=== PATIENT | male | born 1960 | race Caucasian/White ===

== ENCOUNTER 2021-03-22 22:41 | Inpatient (IN) | payer OTHER ==
[~2021-03-22] VITALS: Ht 170.2 cm; Wt 66.3 kg
[2021-03-22 23:16] LABS: BASOPHILS ABSOLUTE AUTO 0.03 K/mm3 (0.00-0.23); BASOPHILS PERCENT AUTO 1 % (0-2); EOSINOPHILS ABSOLUTE AUTO 0.29 K/mm3 (0.00-0.68); EOSINOPHILS PERCENT AUTO 5 % (0-6); Hematocrit 24.9 % (37.0-53.0); Hemoglobin 8.3 g/dL (13.5-17.5); IMMATURE GRAN ABSOLUTE AUTO 0.03 K/mm3 (0.00-0.10); IMMATURE GRAN PERCENT AUTO 1 % (0-1); LYMPHOCYTES ABSOLUTE AUTO 0.76 K/mm3 (0.84-5.20); LYMPHOCYTES PERCENT AUTO 13 % (21-46); MONOCYTES PERCENT AUTO 9 % (4-13); Mean Corpuscular HGB 32.5 pg (26.0-34.0); Mean Corpuscular HGB Conc 33.3 g/dL (31.5-36.5); Mean Corpuscular Volume 98 fL (80-100); Mean Platelet Volume 9.9 fL (9.1-12.4); NEUTROPHILS ABSOLUTE AUTO 4.15 K/mm3 (1.96-9.15); NEUTROPHILS PERCENT AUTO 72 % (41-73); Platelet Count 93 K/mm3 (150-400); RDW Coefficient Variation 17.8 % (11.7-14.2); RDW Standard Deviation 63.2 fL (35.1-46.3); Red Blood Cell Count 2.55 M/mm3 (4.30-5.90); White Blood Cell Count 5.76 K/mm3 (4.00-11.30)
[2021-03-22 23:37] LABS: Alanine Aminotransfer (ALT/SGP 20 U/L (12-78); Albumin, Blood 2.8 g/dL (3.4-5.0); Albumin/Globulin Ratio 0.8 (0.8-1.8); Alk Phos 76 U/L (50-136); Anion Gap 5 mmol/L (6-16); Aspartate Aminotrans (AST/SGOT 43 U/L (12-37); Bilirubin, Total 4.8 mg/dL (0.1-1.0); Blood Urea Nitrogen 15 mg/dL (8-24); Bun/Creatinine Ratio 13.2 (12.0-20.0); CO2, Blood 27 mmol/L (21-32); Calcium, Blood 8.4 mg/dL (8.5-10.1); Chloride, Blood 108 mmol/L (98-108); Creatinine, Blood 1.14 mg/dL (0.60-1.20); Globulin, Blood 3.4 g/dL (2.2-4.0); Glomerular Filtration Rate >60 (60-); Glucose, Blood 90 mg/dL (70-99); Potassium, Blood 4.5 mmol/L (3.5-5.5); Sodium, Blood 140 mmol/L (136-145); Total Protein, Blood 6.2 g/dL (6.4-8.2)
[2021-03-23 07:12] LABS: Anion Gap 5 mmol/L (6-16); Blood Urea Nitrogen 15 mg/dL (8-24); Bun/Creatinine Ratio 13.5 (12.0-20.0); CO2, Blood 26 mmol/L (21-32); Calcium, Blood 8.3 mg/dL (8.5-10.1); Chloride, Blood 109 mmol/L (98-108); Creatinine, Blood 1.11 mg/dL (0.60-1.20); Glomerular Filtration Rate >60 (60-); Glucose, Blood 86 mg/dL (70-99); Potassium, Blood 4.3 mmol/L (3.5-5.5); Sodium, Blood 140 mmol/L (136-145)
[2021-03-23 07:21] LABS: BASOPHILS ABSOLUTE AUTO 0.04 K/mm3 (0.00-0.23); BASOPHILS PERCENT AUTO 1 % (0-2); EOSINOPHILS PERCENT AUTO 6 % (0-6); Hematocrit 24.6 % (37.0-53.0); Hemoglobin 8.2 g/dL (13.5-17.5); IMMATURE GRAN ABSOLUTE AUTO 0.03 K/mm3 (0.00-0.10); IMMATURE GRAN PERCENT AUTO 1 % (0-1); LYMPHOCYTES ABSOLUTE AUTO 0.72 K/mm3 (0.84-5.20); LYMPHOCYTES PERCENT AUTO 15 % (21-46); MONOCYTES ABSOLUTE AUTO 0.43 K/mm3 (0.16-1.47); MONOCYTES PERCENT AUTO 9 % (4-13); Mean Corpuscular HGB 33.3 pg (26.0-34.0); Mean Corpuscular HGB Conc 33.3 g/dL (31.5-36.5); Mean Corpuscular Volume 100 fL (80-100); Mean Platelet Volume 10.3 fL (9.1-12.4); NEUTROPHILS ABSOLUTE AUTO 3.22 K/mm3 (1.96-9.15); NEUTROPHILS PERCENT AUTO 68 % (41-73); Platelet Count 90 K/mm3 (150-400); RDW Coefficient Variation 17.7 % (11.7-14.2); RDW Standard Deviation 66.1 fL (35.1-46.3); Red Blood Cell Count 2.46 M/mm3 (4.30-5.90); White Blood Cell Count 4.74 K/mm3 (4.00-11.30)
--- NOTE | 2021-03-23 07:25 | NUR ---
PT ARRIVES TO ICU VIA GURNEY AT 0320 THIS AM, APPEARS TO BE SLEEPING ON ARRIVAL TO ROOM, ROUSES EASILY TO VERBAL STIMULI, STATES THAT HE IS AWARE THAT HE IS IN [place] AND THAT HE HAS BEEN IN THE HOSPITAL MORE THAN HOME HOWEVER HE DOES NOT KNOW MUCH MORE AT THIS TIME. HIS CHIEF COMPLAINT IS ITCHING AND FEELING COLD AT THIS TIME, WARM BLANKETS PROVIDED. LUNGS WITH CRACKLES MID TO BASES BILAT, SATS MAINTAINING WITH OXYGEN VIA NASAL CANNULA AT 4 L/MIN HOME FLOW RATE PER REPORT IS 2 L/MIN, SPEAKING IN FULL SENTENCES, RATE TEENS. HRR, SINUS RHYTHM, PRESSURES SOFT BUT MAINTAINING MAP.
--- NOTE | 2021-03-23 07:30 | NUR ---
Received report from Lillian GLEZ. Patient laying on left side and awakened easily when entering room. He is slow to answer and is withdrawn affect. He is on RA and sats 96%. He is able top communicate needs and position self in bed for comfort. He has LW 20ga IV infusing Protonix at 10 ml/hr, 20ga IV LFA infusing Octreotide at 50mcg/hr and RW 18ga IV flushed and SL. He has 16 Fr méndez draining to gravity erasto colored urine. He has compression bootys in place.
--- NOTE | 2021-03-23 08:00 | NUR ---
Oral care, cath care, and full bath given and repositioned . All med per mar administered. He is intunbated and paralyzed. He has 8.0 ET and 26 cm at lips with vent settings of 24/500/20/95% and sats 93%. He has CL RIJ dressing intact and site WNL's infusing Ronald-synepherine and 30 mcg/min, Nimbex at 3 mcg/kg/min, NS at 100 mlm/hr and Fentanyl at 100 mcg/hr. He hac 20ga Power glide in [place] and is infusing 50 mcg/kg/min Propofol. He also has 20ga PowerGlide in EULOGIO dressing intact and site WNL's He has 16 Fr méndez draining to gravity erasto colored urine. BIS 45-55 and TO4 1/4.
--- NOTE | 2021-03-23 09:24 | NUR ---
Patient was up on bedpan without success. Tolerated Cl Liq diet for breakfast. Wants to get up and walk around. VSS. No signs of current GI bleeding. Awake and alert. MAEW.
[2021-03-23 10:12] LABS: Hematocrit 29.5 % (37.0-53.0); Hemoglobin 9.7 g/dL (13.5-17.5)
--- NOTE | 2021-03-23 12:41 | NUR ---
Verified consult with Dr Santos and he will be in after cases. Patient up to bedside cammode with SBA and did well, he had brown formed stool with small amout of maroon at end. Istrate by and no new orders, he stated if not scopeing maybe transferred from ICU. VSS, See EMR. He remains on RA and sats >95%. He sleeps when not disturbed with care and awakens easily. ABX given per OCT.
--- NOTE | 2021-03-23 16:25 | NUR ---
Patient continues to rest and awakens easily when care. He has kash stating he is cold but and 100.3 fever. VSS, See EMR. Patient anxious about procedure. Continues to tolerate CL Liq. No BM since this am. Protonix and Octreotide continues at same rate.. Remains on RA.
[2021-03-23 17:20] LABS: SARS-Cov-2 (COVID-19) PCR, MMC NEGATIVE (NEGATIVE)
--- NOTE | 2021-03-23 18:34 | NUR ---
Dr Santos here to see patient. Just prior gave patient bath with aide. Changed méndez out per Infection control and will send UA when he has some urine. VSS, See EMR. Patient continues to rest. Protonix at 10 ml/hr and Octreotide and 5o mcg/hr.
[2021-03-23 19:04] LABS: Source, Urine Catheter
[2021-03-23 19:09] LABS: Appearance, Urine Hazy (Clear); Bilirubin, Urine Neg (Neg); Blood, Urine 5+ (Neg); Color, Urine Amber (P-Yellow); Glucose Qualitative, Urine Neg (Neg); Ketones, Urine Neg (Neg); Leukocyte Esterase, Urine 3+ (Neg); Nitrite, Urine Neg (Neg); Protein, Urine 2+ (Neg); Urobilinogen, Urine NORM (Normal)
--- NOTE | 2021-03-23 19:30 | NUR ---
ASSUMED CARE OF PT, REPORT RECEIVED. PT IS NOTED RESTING QUIETLY ON LEFT SIDE IN BED AND APPEARS TO BE SLEEPING, ROUSES EASILY TO VERBAL STIMULI, STATES THAT HE WANTS TO GO HOME, ADMITS TO "A LITTLE BIT" OF NAUSEA WHEN ASKED, STATES THAT HIS PAIN CONTINUES TO BE GENERALIZED AND "BAD" HOWEVER HE STATES THAT HE CAN SLEEP AND FORGET THAT HE HURTS WHEN UNDISTURBED, PLAN AT THIS TIME IS TO ALLOW FOR UNITERUPTED REST SECONDARY TO PRESSURES SOFT AND RESP RATE IS LOW TEENS AT THIS TIME. HE IS SLOW TO RESPOND, SPEAKING IN FULL SENTENCES, STATES THAT HIS BREATHING FEELS "ALL RIGHT" AND SATS ARE MAINTAINING LOW 90S WITH SLEEP. HRR, SINUS CONTINUES ON MONITOR, PRESSURES REMAIN SOFT HOWEVER MAINTAINING MAP, CONTINUES WITHOUT EDEMA, PULSES REMAIN FULL, CAP REFILL 3 SECONDS. HYPERACTIVE BOWEL TONES CONTINUE, ABD MODERATELY DISTENDED, TENDER TO PALP. SCABS CONTINUE TO BE NOTED SCATTERED OVER WHOLE BODY, PT ADMITS TO CONTINUED ITCHING.
[2021-03-23] MEDS ORDERED: ONDA4ODT PO (19:40)
[2021-03-23] MEDS ORDERED: LACT10SY PO (19:40)
[2021-03-23] MEDS ORDERED: PROC5 PO (19:41)
[2021-03-23] MEDS ORDERED: ALBU90OI INH (19:42)
[2021-03-23] MEDS ORDERED: MIDO5 PO (19:42)
[2021-03-23] MEDS ORDERED: MAGNESIUM OXID500 MG PO (19:43)
[2021-03-23] MEDS ORDERED: B-1100 M1 PO (19:43)
[2021-03-23] MEDS ORDERED: DIPH50 PO (19:43)
[2021-03-23] MEDS ORDERED: Atarax10 MG PO (19:44)
[2021-03-23] MEDS ORDERED: GABA300 PO (19:44)
[2021-03-23] MEDS ORDERED: FURO20 PO (19:44)
[2021-03-23] MEDS ORDERED: OMEP20ER PO (19:46)
[2021-03-23] MEDS ORDERED: NOVOLOG FL100 UNIT/3 SC (19:46)
[2021-03-23] MEDS ORDERED: POTA10T PO (19:47)
[2021-03-23] MEDS ORDERED: SPIR50 PO (19:47)
[2021-03-23] MEDS ORDERED: PROM25 PO (19:48)
[2021-03-23] MEDS ORDERED: MECL25 PO (19:48)
[2021-03-23] MEDS ORDERED: TRAM50 PO (19:48)
[2021-03-23 20:08] LABS: Bacteria Rare /hpf; Red Blood Cells, Urine 50-100 /hpf (0-2); Renal Epithelial Rare /hpf (0-Rare); Squamous Epithelial Cells Few /hpf (Few)
[2021-03-24 03:22] LABS: BASOPHILS ABSOLUTE AUTO 0.04 K/mm3 (0.00-0.23); BASOPHILS PERCENT AUTO 1 % (0-2); EOSINOPHILS ABSOLUTE AUTO 0.31 K/mm3 (0.00-0.68); EOSINOPHILS PERCENT AUTO 8 % (0-6); Hematocrit 24.7 % (37.0-53.0); Hemoglobin 8.3 g/dL (13.5-17.5); IMMATURE GRAN ABSOLUTE AUTO 0.02 K/mm3 (0.00-0.10); IMMATURE GRAN PERCENT AUTO 1 % (0-1); LYMPHOCYTES ABSOLUTE AUTO 0.61 K/mm3 (0.84-5.20); LYMPHOCYTES PERCENT AUTO 15 % (21-46); MONOCYTES ABSOLUTE AUTO 0.36 K/mm3 (0.16-1.47); MONOCYTES PERCENT AUTO 9 % (4-13); Mean Corpuscular HGB 33.2 pg (26.0-34.0); Mean Corpuscular HGB Conc 33.6 g/dL (31.5-36.5); Mean Corpuscular Volume 99 fL (80-100); Mean Platelet Volume 10.4 fL (9.1-12.4); NEUTROPHILS ABSOLUTE AUTO 2.75 K/mm3 (1.96-9.15); NEUTROPHILS PERCENT AUTO 67 % (41-73); Platelet Count 98 K/mm3 (150-400); RDW Coefficient Variation 17.3 % (11.7-14.2); RDW Standard Deviation 63.8 fL (35.1-46.3); White Blood Cell Count 4.09 K/mm3 (4.00-11.30)
[2021-03-24 03:34] LABS: International Normalized Ratio 1.53; Prothrombin Time Results 16.1 Sec (9.7-11.5)
[2021-03-24 03:49] LABS: Alanine Aminotransfer (ALT/SGP 18 U/L (12-78); Albumin, Blood 2.6 g/dL (3.4-5.0); Albumin/Globulin Ratio 0.8 (0.8-1.8); Alk Phos 68 U/L (50-136); Anion Gap 4 mmol/L (6-16); Aspartate Aminotrans (AST/SGOT 38 U/L (12-37); Bilirubin, Total 2.9 mg/dL (0.1-1.0); Blood Urea Nitrogen 12 mg/dL (8-24); Bun/Creatinine Ratio 11.8 (12.0-20.0); CO2, Blood 28 mmol/L (21-32); Calcium, Blood 8.2 mg/dL (8.5-10.1); Chloride, Blood 110 mmol/L (98-108); Creatinine, Blood 1.02 mg/dL (0.60-1.20); Globulin, Blood 3.4 g/dL (2.2-4.0); Glomerular Filtration Rate >60 (60-); Glucose, Blood 109 mg/dL (70-99); Phosphorus, Blood 2.3 mg/dL (2.5-4.9); Potassium, Blood 3.8 mmol/L (3.5-5.5); Sodium, Blood 142 mmol/L (136-145); Thyroid Stimulating Hormone 0.156 uIU/mL (0.360-4.800)
--- NOTE | 2021-03-24 05:59 | NUR ---
PT RESTS QUIETLY THROUGHOUT SHIFT, DOES COMPLAIN OF PAIN AND ITCHING WHEN ROUSED FOR ASSESSMENTS HOWEVER IS NOTED TO QUICKLY RETURN TO SLEEP WHEN UNDISTURBED. HE HAS TOLERATED CLEAR LIQUID DIET THIS SHIFT, CHANGED TO WATER AND ICE CHIPS AT MIDNIGHT AND WILL BE NPO AT 1000 THIS AM FOR EGD WITH DR TRINIDAD. PT IS NOTED TO HAVE SATS DECREASE TO 88% WITH SLEEP, OXYGEN VIA NASAL CANNULA AT HOME FLOW RATE OF 2 L/MIN APPLIED AND SATS ARE MAINTAINED GREATER THAN 92%. SYSTOLIC PRESSURES CONTINUE LOW 100S THROUGHOUT SHIFT, MAP MAINTAINED. SINUS RHYTHM WITH RATE 70-90S. 475 ML URINE OUTPUT VIA STRANGE CATHETER, PASSING FLATUS, NO BOWEL MOVEMENT THIS SHIFT. NO EMESIS. PT TURNS AND REPOSITIONS SELF FREQUENTLY AND WELL. EXCORIATIONS CONTINUE.
--- NOTE | 2021-03-24 10:30 | NUR ---
ASSUMED CARE: REPORT RECEIVED FROM GRIFFIN Jensen RN. ASSUMED CARE OF THIS PT AT APPROX 1030. ON ASSESSMENT, THE PT IS ATTEMPTING TO REST BUT HAS C/O GENERALIZED PAIN & ABDOMINAL PAIN WELL. PRN MEDS PER EMAR W/ LITTLE RELIEF. PER REPORT, THE PLAN IS FOR EGD W/ ANESTHESIOLOGY AT 1400 TODAY. PT PLACED ON 2L NC FOR DESATS TO 86% WHILE SLEEPING. MONITOR SHOWS SR W/ HR 80s, BP STABLE. NPO AT 1000 PER ORDERS. STRANGE PATENT/ DRAINING DARK YELLOW URINE. SKIN OVERALL FRAGILE, ECCHYMOTIC. SCABS T/O BODY SURFACE. PT HAS OCCASIONALLY C/O "ITCHINESS." WILL CONTINUE TO MONITOR & UPDATE NEEDED.
--- NOTE | 2021-03-24 10:47 | NUR ---
REPORT GIVEN TO SHARDA GLEZ IN ICU.
--- NOTE | 2021-03-24 11:00 | NUR ---
DR BARNES: PROVIDER AT BEDSIDE TO EVAL PT. NO CHANGES AT THIS TIME.
--- NOTE | 2021-03-24 15:36 | NUR ---
03/24/21 1536 DULCE MARIA FORD History, Chart, Medications and Allergies reviewed before start of procedure. 3-LEAD EKG REVIEWED WITH PHYSICIAN PRIOR TO START OF PROCEDURE. O2 VIA POM INTACT THROUGHOUT SEDATION/PROCEDURE. MONITOR INTACT WITH CONTINUOUS PULSE OXIMETRY AND INTERMITTENT BP. MAC WITH DR. CLARK.
--- NOTE | 2021-03-24 16:25 | NUR ---
ENDOSCOPY / DR TRINIDAD: DAY SURGERY ENDO TEAM AT BEDSIDE. PROCEDURE HAS BEEN COMPLETED W/ NO INTERVENTION NEEDED. DR TRINIDAD STS HE WILL PLACE DIETARY & TRANSFER ORDERS FOR THIS PT. THE PT IS RECOVERING WELL, VSS. HE IS AWAKE & TOLERATING SMALL AMNTS OF PO INTAKE WELL. HE STILL HAS SOME C/O ABD PAIN, PRN MEDS PER EMAR.
--- NOTE | 2021-03-24 18:31 | NUR ---
SHIFT SUMMARY: NO ACUTE CHANGES SINCE PRIOR UPDATES. PT REMAINS A&O, COOPERATIVE W/ CARE. HE IS LESS EMOTIONAL THIS AFTERNOON & STS HIS GENERALIZED & ABDOMINAL PAIN HAS IMPROVED SOMEWHAT. 2L NC ON WHILE SLEEPING, O2 SATS > 92%. TELE REMOVED W/ STATUS CHANGE TO MEDICAL. PT HAS TOLERATED PO INTAKE OF DINNER WELL W/ NO NAUSEA OR INCREASED ABD PAIN. STRANGE PATENT/ DRAINING DARK YELLOW URINE. SKIN CONDITION OVERALL ECCHYMOTIC W/ SCABS COVERING MUCH OF BODY SURFACE FROM PT ITCHING & PICKING AT SKIN. WILL CONTINUE TO MONITOR & REPORT OFF TO ONCOMING RN.
--- NOTE | 2021-03-24 21:40 | NUR ---
PT TRANSFERRED FROM ICU PER W/C TO 211 A/O
[2021-03-25 04:20] LABS: BASOPHILS ABSOLUTE AUTO 0.05 K/mm3 (0.00-0.23); BASOPHILS PERCENT AUTO 1 % (0-2); EOSINOPHILS PERCENT AUTO 12 % (0-6); Hematocrit 26.4 % (37.0-53.0); Hemoglobin 8.7 g/dL (13.5-17.5); IMMATURE GRAN ABSOLUTE AUTO 0.02 K/mm3 (0.00-0.10); IMMATURE GRAN PERCENT AUTO 1 % (0-1); LYMPHOCYTES ABSOLUTE AUTO 0.83 K/mm3 (0.84-5.20); LYMPHOCYTES PERCENT AUTO 20 % (21-46); MONOCYTES ABSOLUTE AUTO 0.46 K/mm3 (0.16-1.47); MONOCYTES PERCENT AUTO 11 % (4-13); Mean Corpuscular HGB 33.1 pg (26.0-34.0); Mean Corpuscular Volume 100 fL (80-100); Mean Platelet Volume 10.6 fL (9.1-12.4); NEUTROPHILS ABSOLUTE AUTO 2.39 K/mm3 (1.96-9.15); NEUTROPHILS PERCENT AUTO 56 % (41-73); Platelet Count 95 K/mm3 (150-400); RDW Coefficient Variation 17.1 % (11.7-14.2); Red Blood Cell Count 2.63 M/mm3 (4.30-5.90); White Blood Cell Count 4.25 K/mm3 (4.00-11.30)
[2021-03-25 04:58] LABS: Alanine Aminotransfer (ALT/SGP 19 U/L (12-78); Albumin, Blood 2.5 g/dL (3.4-5.0); Albumin/Globulin Ratio 0.7 (0.8-1.8); Alk Phos 65 U/L (50-136); Anion Gap 3 mmol/L (6-16); Aspartate Aminotrans (AST/SGOT 36 U/L (12-37); Bilirubin, Total 2.4 mg/dL (0.1-1.0); Blood Urea Nitrogen 8 mg/dL (8-24); Bun/Creatinine Ratio 8.2 (12.0-20.0); CO2, Blood 27 mmol/L (21-32); Calcium, Blood 8.3 mg/dL (8.5-10.1); Chloride, Blood 111 mmol/L (98-108); Creatinine, Blood 0.98 mg/dL (0.60-1.20); Globulin, Blood 3.4 g/dL (2.2-4.0); Glomerular Filtration Rate >60 (60-); Glucose, Blood 91 mg/dL (70-99); Magnesium, Blood 1.9 mg/dL (1.6-2.4); Phosphorus, Blood 2.7 mg/dL (2.5-4.9); Potassium, Blood 3.4 mmol/L (3.5-5.5); Sodium, Blood 141 mmol/L (136-145); Total Protein, Blood 5.9 g/dL (6.4-8.2)
--- NOTE | 2021-03-25 07:59 | NUR ---
SUMMARY MED TONIGHT WITH MORPHINE 2 MGWITH VERB ADEQUATE RESULTS. SLEPT AFTER. NO EVIDENCE OF GI BLEED TONIGHT.PROTONIX AND SANDOSTATIN INFUSING.
--- NOTE | 2021-03-25 10:45 | NUR ---
pas removed per patient request. education provided to patient on why PAS are prescribed and patient declines them at this time
--- NOTE | 2021-03-25 17:13 | NUR ---
SUMMARY IRASEMA PO FOOD AND FLUIDS WITHOUT PAIN OR NAUSEA. PT STATES HAD ONE DARK ALMOST BLACK STOOL . VOIDING CLEAR YELLOW URINE. PT STATES HE ITCHES ALL OVER AND THAT THIS HAS BEEN GOING ON FOR SEVERAL MONTHS. PT WITH MULTIPLE SCABS AND ABRASIONS WHICH HE STATES IS FROM SCRATCHING SKIN DUE TO ITCHING. PT ANTICIPATES DISCHARGE TO HOME IN THE MORNING. PTS DAUGHTER STATES SHE WILL BE HERE TOMORROW AROUND NOON TO PROVIDE TRANSPORTATION HOME
--- NOTE | 2021-03-26 06:03 | NUR ---
SUMMARY PT PLANS FOR DISCHARGE HOME TODAY. FAMILY DRIVING FROM [place].
--- NOTE | 2021-03-26 08:02 | NUR ---
PT DOES NOT KNOW NAME OF PCP. PT INSTRUCTED TO SCHEDULE FOLLOW UP APPT FOR FIRST AVAILABLE APPT AFTER DISCHARGE
[2021-03-26] MEDS ORDERED: CEFP200 PO (10:15)
[2021-03-26] MEDS ORDERED: AZIT500 PO (10:15)
[2021-03-26] MEDS ORDERED: Inderal40 MG PO (10:17)
[2021-03-26] MEDS ORDERED: VISBIOME 112.51 EACH PO (10:18)
--- NOTE | 2021-03-26 14:36 | NUR ---
1430 discharge instructions reviewed with patient and patients daughters and both verbalize understanding of. pts daughter has follow up appt scheduled for patient. pt saritha po food and fluid without pain or nausea. pt and his daughter are agreeable to plan to discharge to home
== END 2021-03-26 14:25 | disposition home or self-care (01) | DRG 377 ==
LOC: ER 22:41 → SURS 03-23 02:30 → ICUW 03-23 02:30 → SURS 03-24 21:38
PROVIDERS: Emergency Medicine; Family Medicine; Internal Medicine Gastroenterology; ADMIT Family Medicine
PROC: 0DJ08ZZ Inspection of Upper Intestinal Tract, Via Natural or Artificial Opening Endoscopic (ICD-10-PCS; principal; 2021-03-24 15:30)
DX: K92.0 Hematemesis (principal); J18.9 Pneumonia, unspecified organism; J96.21 Acute and chronic respiratory failure with hypoxia; K76.6 Portal hypertension; J44.0 Chronic obstructive pulmonary disease with (acute) lower respiratory infection; D62 Acute posthemorrhagic anemia; K22.8 Other specified diseases of esophagus; I25.10 Atherosclerotic heart disease of native coronary artery without angina pectoris; E11.22 Type 2 diabetes mellitus with diabetic chronic kidney disease; I12.9 Hypertensive chronic kidney disease with stage 1 through stage 4 chronic kidney disease, or unspecified chronic kidney disease; N18.9 Chronic kidney disease, unspecified; K70.31 Alcoholic cirrhosis of liver with ascites; G89.29 Other chronic pain; K44.9 Diaphragmatic hernia without obstruction or gangrene; E78.5 Hyperlipidemia, unspecified; Z20.822 Contact with and (suspected) exposure to COVID-19; M54.5 Low back pain; K31.89 Other diseases of stomach and duodenum; D69.59 Other secondary thrombocytopenia; K72.90 Hepatic failure, unspecified without coma; F32.9 Major depressive disorder, single episode, unspecified; Z95.5 Presence of coronary angioplasty implant and graft; Z88.5 Allergy status to narcotic agent; Z79.01 Long term (current) use of anticoagulants; Z90.49 Acquired absence of other specified parts of digestive tract; Z98.1 Arthrodesis status; Z87.891 Personal history of nicotine dependence; Z79.4 Long term (current) use of insulin; Z79.899 Other long term (current) drug therapy; Z86.010 Personal history of colon polyps; Z99.81 Dependence on supplemental oxygen
CPT/HCPCS: 36415; 71260; 76705; 80048; 80053; 81001; 82947; 83735; 84100; 84145; 84443; 85014; 85018; 85025; 85379; 85610; 85651; 86140; 86850; 86900; 86901; 87040; 96374; 99285-25; A9270; C9113; J0171; J0456; J0696; J1430; J2001; J2250; J2270; J2354; J2704; J7030; J7050; J7120; Q9967; U0004